=== PATIENT | female | born 1960 | race Caucasian/White ===

== ENCOUNTER 2019-11-09 13:32 | Emergency (ER) | payer MEDICAID ==
[2019-11-09] MEDS ORDERED: Iopamidol 755 MG/ML 200 ML Multipack Bottle IVPUSH ONE (14:52)
--- NOTE | 2019-11-09 15:41 | CT ---
CT abdomen and pelvis Technique: Multiple axial sections were obtained from above the dome of the diaphragm inferiorly through the pubic symphysis. Intravenous contrast was utilized. No oral contrast has been given. Findings: Visualized lung bases show scarring or atelectasis within the right base. Small cyst is noted within the dome of the left lobe of the liver measuring 1.0 cm. No additional abnormality is appreciated within the liver. Gallbladder contains no calcified gallstones. Spleen shows no discrete abnormality. Adrenal glands show no nodule. Pancreas is within normal limits. Kidneys show symmetric contrast enhancement. Aorta shows atherosclerotic change without aneurysm. No retroperitoneal adenopathy is seen. Inflammatory change is noted around a portion of the colon near the junction of the sigmoid and descending colon. Adjacent bowel wall thickening is seen. Numerous diverticuli are seen in this area. Findings are compatible with diverticulitis. No additional pelvic abnormality is appreciated. Uterus shows questionable small fibroid change. Bone window settings were reviewed which show no acute osseous finding. Mild degenerative apophyseal change is seen within the lower lumbar spine. Impression: 1. Findings compatible with diverticulitis near the descending and sigmoid regions. 2. Other findings believed to be incidental as noted above. Diagnostic code #3 This report was dictated in Mountain Standard Time
[2019-11-09] MEDS ORDERED: Amoxicillin/Clavulanate K 875-125 MG Tab PO ONE (16:14)
--- NOTE | 2019-11-09 16:17 | EDM.PDOC ---
ED [facility] GENERAL MEDICAL PROBLEM - General Chief Complaint: Abdominal Pain Stated Complaint: ADMIT FOR CLINIC Time Seen by Provider: 11/09/19 13:55 - History of Present Illness INITIAL COMMENTS - FREE TEXT/NARRATIVE: HPI 59-year-old morbidly obese female presents for evaluation approximately 5 days of left carotid pain, continues to take PO well pass urine, flatus, stool baseline, no dysuria, urinary frequency, flank pain. No identifiable provoking or relieving factors. [] M/S/F/SocHx notable for: [please see HPI]; remainder reviewed with patient and in chart. ROS: Negative constitutional, eye, cardiovascular, pulmonary, GI, , MSK, skin , neurologic, psychiatric, endocrine unless noted in the HPI. Exam HR 100, RR 18, 135/50, T 36.7C, SaO2 95% on room air. Gen: [Pleasant, non-toxic appearing, resting comfortably.] HEENT: [NC, AT, PEERL, EOMI.] Resp: [Clear to auscultation bilaterally, normal work of breathing, no accessory muscle usage.] Card: [Regular rate and rhythm with no murmurs, rubs, or gallops, extremities warm and well perfused.] GI: [mild left lower quadrant tenderness palpation, remainder of abdomen nontender to palpation to palpation throughout all quadrants, no focal tenderness at McBurney's point, negative Ludwig's sign, non-distended, no rebound or guarding.] : [No suprapubic tenderness to palpation.] MSK: [No visible deformities, strength and tone without visually appreciable deficit.] Skin: [Normal color with no visible lesions.] Neuro: [alert and oriented 3, no facial asymmetry, vision and hearing WNL.] Psych: [Mood and affect appropriate.] Labs / Imaging: [WBC 14.4, HB 14.2, sodium 141, potassium 4.2, glucose 115, AST 8, ALT 26, total bilirubin 0.2, ALP 102, UA with negative leukocyte esterase, negative nitrates. CT Abd/Pelvis: Findings compatible with diverticulitis near the descending and sigmoid regions.] MDM Previous chart, nursing note, labs, imaging, and vitals reviewed. A: [59-year-old morbidly obese female presents for evaluation approximately 5 days of left carotid pain, continues to take PO well pass urine, flatus, stool baseline, no dysuria, urinary frequency, flank pain.] DDx: diverticulitis (with or without convocations), UTI, ureterolithiasis, pyelonephritis, lobar nephronia, mesenteric adenitis, ovarian torsion. Evaluation: imaging C/W acute uncomplicated diverticulitis, patient well compensated. UA without evidence of infection. No evidence of ureterolithiasis or further genitourinary abnormalities. Impression: diverticulitis. Left lower quardrant Pain Score (Numeric/FACES): 7 - Related Data Allergies Allergy/AdvReac Type Severity Reaction Status Date / Time No Known Allergies Allergy Verified 11/09/19 13:53 Home Meds: Home Meds Acetaminophen/HYDROcodone [Montrose 325-5 MG] 1 - 2 tab PO Q6H PRN #10 tablet 11/08 [Rx] Amoxicillin/Clavulanate K [Augmentin 875-125 MG] 1 tab PO BID #19 tablet [Rx] Past Medical History HEENT History: Reports: None Cardiovascular History: Reports: Heart Failure, Hypertension Respiratory History: Reports: Other (See Below) Other Respiratory History: CPAP at home Gastrointestinal History: Reports: GERD, Irritable Bowel Syndrome Genitourinary History: Reports: None 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: Musculoskeletal History: Reports: None Neurological History: Reports: Neuropathy, Diabetic Psychiatric History: Reports: None Endocrine/Metabolic History: Reports: Diabetes, Type II Hematologic History: Reports: None Immunologic History: Reports: None Oncologic (Cancer) History: Reports: None Dermatologic History: Reports: None - Infectious Disease History Infectious Disease History: Reports: TB - Past Surgical History Head Surgeries/Procedures: Reports: None HEENT Surgical History: Reports: None Cardiovascular Surgical History: Reports: None Respiratory Surgical History: Reports: None GI Surgical History: Reports: None Female Surgical History: Reports: None Endocrine Surgical History: Reports: None Neurological Surgical History: Reports: None Musculoskeletal Surgical History: Reports: None Oncologic Surgical History: Reports: None Dermatological Surgical History: Reports: None Social & Family History - Family History Family Medical History: Noncontributory - Tobacco Use Smoking Status *Q: Current Every Day Smoker Years of Tobacco use: 30 Packs/Tins Daily: 0.1 - Caffeine Use Caffeine Use: Reports: None - Recreational Drug Use Recreational Drug Use: No ED ROS GENERAL - Review of Systems Review Of Systems: See Below ED EXAM, GENERAL - Physical Exam Exam: See Below Course - Vital Signs Last Recorded V/S: Last Vital Signs Temp 36.7 C 11/09/19 13:51 Pulse 100 11/09/19 13:51 Resp 18 11/09/19 13:51 BP 135/50 L 11/09/19 13:51 Pulse Ox 95 11/09/19 13:51 - Orders/Labs/Meds Orders: Active Orders 24 hr Category Date Time Status Amoxicillin/Clavulanate K [Augmentin 875 MG/125 MG] Med 11/09/19 16:14 Once 1 tab PO ONETIME ONE Meds: Medications Discontinued Medications Generic Name Dose Route Start Last Admin Trade Name Freq PRN Reason Stop Dose Admin Iopamidol 100 ml 11/09/19 14:52 11/09/19 15:15 Isovue Multipack-370 (76%) IVPUSH 11/09/19 14:53 100 ml ONETIME ONE Administration Departure - Departure Time of Disposition: 16:15 Disposition: Home, Self-Care 01 Clinical Impression: Diverticulitis - Discharge Information Prescriptions: Acetaminophen/HYDROcodone [Montrose 325-5 MG] 1 - 2 tab PO Q6H PRN #10 tablet PRN Reason: Pain Amoxicillin/Clavulanate K [Augmentin 875-125 MG] 1 tab PO BID #19 tablet Referrals: Dolores Maldonado PA [Primary Care Provider] - Additional Instructions: You were in seen in the [facility] Emergency Department for evaluation of abdominal pain, your found have diverticulitis. You have been prescribed Augmentin they should take twice daily for the next 10 days. Please read and follow all of the instructions below. Please follow up with your primary care physician in 48 hours repeat evaluation. When calling for follow-up care, please make the office aware that this follow-up is from your recent emergency room visit. If for any reason you are refused follow-up, please contact the [facility] Emergency Department at and asked to speak to the emergency department charge nurse. [] Your care today was limited to identifying and treating emergent medical problems only. Many people have subtle differences in their test results that require follow up with their outpatient physician(s) to correctly determine if this represents a normal variation or concerning abnormality with respect to your specific health. The care given to you today was limited to identifying and treating emergent medical problems - you need to request a copy of all of your medical records from today's visit and follow up with your outpatient physician(s) to review both today's visit and your overall health. If you have any new symptoms or if you are at all concerned about your health please return immediately to the emergency department. You have been diagnosed with diverticulitis. Diverticulitis is when small pouches form in the colon wall. The pouches are called diverticuli. This is a blind pouch. It sticks out of the side of the colon, much like the appendix. They can show up anywhere in the large bowel ( colon). However, they are most common in the left side. These outpouchings ( diverticuli) often cause no symptoms. Diverticulitis is a bacterial infection of the pouch. It is most common in people over 50 years old. Symptoms include abdominal (belly) pain, usually on the left lower side. Other symptoms are fever (temperature higher than 100.4F / 38C) and sometimes diarrhea. There may also be changes in your stool habits. Diverticulitis is treated with antibiotics and bowel rest. You have been prescribed Augmentin (875/125 mg three times daily for 10 days ), please take this as prescribed. Warning regarding both these medications are below. We recommend you limit activity and keep a liquid diet for the next two days. Symptoms should start to get better over the next 2-3 days. Come back right away for re-evaluation if you feel sicker at any time. Diverticulitis is a serious disease. Follow up with your primary doctor or general surgeon in the next 2-3 days. It is important to do so even if the symptoms get better. You may need another test after you have improved. This is to make sure there is no other reason for the symptoms. YOU SHOULD SEEK MEDICAL ATTENTION IMMEDIATELY, EITHER HERE OR AT THE NEAREST EMERGENCY DEPARTMENT, IF ANY OF THE FOLLOWING OCCURS: More abdominal (belly) pain. Continued or rising fever (temperature higher than 100.4F / 38C). Nausea (feeling sick to your stomach) or vomiting (throwing up) General weakness or lightheadedness. Bloody stools (bowel movements). Amoxicillin/Clavulanic Acid (Brand Name: Augmentin) Please take this medication as prescribed. Please take the medication for the full duration of the precription. If you feel you are experiencing a side effect, please call your physician or the emergency department. This is a penicillin type medicine used to treat a wide variety of bacterial infections. Amoxicillin/Clavulanic Acid Side Effects: Diarrhea, nausea, or vomiting may occur. If any of these effects persist or worsen, tell the doctor or pharmacist promptly. Taking this medication with food will help to reduce stomach upset. Tell the doctor right away if any of these rare but serious side effects occur: dark urine, persistent nausea/vomiting, severe stomach/abdominal pain, yellowing eyes/skin, easy bruising/bleeding, new signs of infection (such as fever, persistent sore throat), unusual tiredness. This medication may rarely cause a severe intestinal condition (Clostridium difficile-associated diarrhea) due to a type of resistant bacteria. This condition may occur during treatment or weeks to months after treatment has stopped. Do not use anti-diarrhea products or narcotic pain medications if you have any of the following symptoms because these products may make them worse. Tell the doctor right away if you develop: persistent diarrhea, abdominal or stomach pain/cramping, blood/mucus in your stool. Use of this medication for prolonged or repeated periods may result in oral thrush or a new yeast infection. Contact the doctor if you notice white patches in your mouth, a change in vaginal discharge or other new symptoms. A very serious allergic reaction to this drug is rare. However, get medical help right away if you notice any symptoms of a serious allergic reaction, including: rash, itching/swelling (especially of the face/tongue/throat), severe dizziness, trouble breathing. Amoxicillin can commonly cause a mild rash that is usually not serious. However, you may not be able to tell it apart from a rare rash that could be a sign of a severe allergic reaction. Therefore, get medical help right away if you develop any rash. Amoxicillin/Clavulanic Acid Precautions: Before taking this product, tell your doctor or pharmacist if you are allergic to amoxicillin or clavulanic acid; or to penicillin or cephalosporin antibiotics; or if you have any other allergies. This product may contain inactive ingredients, which can cause allergic reactions or other problems. Talk to your pharmacist for more details. Before using this medication, tell the doctor or pharmacist your medical history, especially of: liver disease (including liver problems caused by previous use of amoxicillin/clavulanic acid), kidney disease, a certain type of viral infection (infectious mononucleosis). This medication may contain aspartame. If you have phenylketonuria (PKU) or any other condition that requires you to limit/avoid aspartame (or phenylalanine ) in your diet, ask your doctor or pharmacist about using this medication safely. Before having surgery, tell your doctor or dentist about all the products you use (including prescription drugs, nonprescription drugs, and herbal products). This product may cause live bacterial vaccines (such as typhoid vaccine) not to work as well. Therefore, do not have any immunizations/vaccinations while using this medication without the consent of your doctor. During , this medication should be used only when clearly needed. Discuss the risks and benefits with your doctor. This medication passes into breast milk. Consult your doctor before breast- feeding. Amoxicillin/Clavulanic Acid Drug Interactions: Drug interactions may change how your medications work or increase your risk for serious side effects. This document does not contain all possible drug interactions. Keep a list of all the products you use (including prescription/ nonprescription drugs and herbal products) and share it with your doctor and pharmacist. Do not start, stop, or change the dosage of any medicines without your doctor's approval. Products that may interact with this drug include: methotrexate. Although most antibiotics are unlikely to affect hormonal control such as pills, patch, or ring, a few antibiotics (such as rifampin, rifabutin) can decrease their effectiveness. This could result in . If you use hormonal control, ask your doctor or pharmacist for more details. This medication may interfere with certain laboratory tests (including certain urine glucose tests), possibly causing false test results. Make sure laboratory personnel and all your doctors know you use this drug. Hydrocodone/Acetaminophen (Brand Names: Montrose, Vicodin) Take as directed on the prescription for relief of pain. This product contains acetaminophen (Tylenol) do not use it with other Acetaminophen containing medications. This drug may cause mild nausea, if so you may take it with a small snack. This drug will cause constipation, if you experience a decrease in bowel movements purchase "Senna-S" (sennasides and docusate) which is available over the counter at pharmacies and take as directed on the bottle. Call your physician if you have not had bowel movemen in two days. This drug may cause fatigue - do not drive or engage in other hazardous activities when using this medication. Do no drink alcohol when using this medication. Store this drug safely, it is a high risk medication if misused. SIDE EFFECTS: Tell your doctor immediately if any of these unlikely but serious side effects occur: mental/mood changes, severe stomach/abdominal pain, difficulty urinating. Seek immediate medical attention if any of these rare but serious side effects occur: fainting, seizure, slow/shallow breathing, unusual drowsiness/difficulty waking up. Taking more than the recommended dose of acetaminophen may cause serious (possibly fatal) liver disease. Seek immediate medical attention if you have any symptoms of liver damage, including: dark urine, persistent nausea/vomiting, stomach/abdominal pain, yellowing eyes/skin. A very serious allergic reaction to this drug is rare. However, seek immediate medical attention if you notice any symptoms of a serious allergic reaction, including: rash, itching/swelling (especially of the face/tongue/throat), severe dizziness, trouble breathing. This is not a complete list of possible side effects. PRECAUTIONS: Before taking this medication, tell your doctor or pharmacist if you are allergic to it; or to other narcotics (such as morphine, codeine); or if you have any other allergies. This product may contain inactive ingredients, which can cause allergic reactions or other problems. Talk to your pharmacist for more details. Before using this medication, tell your doctor or pharmacist your medical history, especially of: brain disorders (such as head injury, tumor , seizures), breathing problems (such as asthma, sleep apnea, chronic obstructive pulmonary disease-COPD), kidney disease, liver disease, mental/mood disorders (such as confusion, depression), personal or family history of regular use/abuse of drugs/alcohol, stomach/intestinal problems (such as blockage, constipation, diarrhea due to infection, paralytic ileus), difficulty urinating (such as due to enlarged prostate). This drug may make you dizzy or drowsy. Avoid alcoholic beverages. Acetaminophen may cause liver damage. Daily use of alcohol, especially when combined with acetaminophen, may increase your risk for liver damage. Caution is advised if you have diabetes, alcohol dependence, liver disease, phenylketonuria (PKU), or any other condition that requires you to limit/avoid these substances in your diet. Ask your doctor or pharmacist about using this product safely. Older adults may be more sensitive to the effects of this drug, especially dizziness, drowsiness, urinary problems. During , this medication should be used only when clearly needed. Using it for long periods or in high doses near the expected delivery date is not recommended because of the potential for harm to the unborn baby. Discuss the risks and benefits with your doctor. Babies born to mothers who have used this medication for an extended time may have withdrawal symptoms such as irritability, abnormal/persistent crying, vomiting, or diarrhea. If you notice any of these symptoms in your , tell the doctor promptly. This medication passes into breast milk and may rarely have undesirable effects on a nursing . Tell the doctor immediately if your baby develops unusual sleepiness, difficulty feeding, or trouble breathing. Consult your doctor before breast-feeding. Prescriptions: If you are uninsured or have financial difficulties with filling your prescription(s), you may consider using a free pharmacy discount service such as [employer] ([employer]) or [employer] ([employer]). These services allow you to search for a medication on your phone (or computer) and obtain a coupon that usually has a significant discount from the list red at a pharmacy. Your physician as well as [facility] does not have a financial relationship with either of these services. You may also wish to speak with your physician to determine if lower cost prescriptions are possible. Obtaining primary care: 1. [facility] provides pediatrics (children), family medicine (children, adults, and some obstetrical care), and internal medicine (adults). Further specialty care is also available. Same day appointments are available. They may be contacted at [phone] and are open Saturday through Saturday 8 AM to [address] [facility] are located at [facility], [address] [place] [address]. 2. [facility] offers family medicine, internal medicine, womens health, and further specialty care. [facility] may be contacted at [phone]. [facility] is located at [address] [place], [address]. 3. If you have health insurance, please also contact your insurer for a list of accepting providers under your policy, you may contact these providers for further health care. Occupational health: Work related injuries may consider following up with [facility], . Occupational health services are located at [address] [place] [address] and are open Saturday through Saturday from 7: 30 am to 5:00 pm. Obstetrical and Gynecological Care: [facility], , Saturday through Saturday 8 AM to 5 PM. [address], [place] [address]. Eyecare: If you have an eye injury you should follow up with your fixed income portfolio manager or with [facility], at [phone] or [phone] , they are located at [address] [place] [address]. Dental Care Yony Wong DDS. [address] [place], [place]. Ph. [phone] Kory Wong DDS MS. [address] [facility] [address], [place], [place]. Ph. Paras Gayle DDS. [address] [place] [address]. Ph. [phone] Ayad Norris DDS. [address] [facility] 4 [place], [place]. Ph. [phone] Darrell Bedoya DDS PC. [address] [facility] [address] [place], [place]. Ph. Obi Allen DDS. [address] [facility]. Ph. [phone] [facility]. [address] [place], [place]. Ph. [phone] [facility]. [address] [address], [place], [place]. Ph. [phone] [facility] [address] [place] [address]. Ph. [phone] [facility]. [address] [place] [address] [address] [place], [place]. Ph. [facility]. [address] [place], [place]. Ph. [phone] Sepsis Event Note - Evaluation Sepsis Screening Result: No Definite Risk - Focused Exam Vital Signs: Vital Signs Temp Pulse Resp BP Pulse Ox 11/09/19 13:51 36.7 C 100 18 135/50 L 95 Date Exam was Performed: 11/09/19 Time Exam was Performed: 16:15 - My Orders Last 24 Hours: My Active Orders 11/09/19 16:14 Amoxicillin/Clavulanate K [Augmentin 875 MG/125 MG] 1 tab PO ONETIME ONE - Assessment/Plan Last 24 Hours: My Active Orders 11/09/19 16:14 Amoxicillin/Clavulanate K [Augmentin 875 MG/125 MG] 1 tab PO ONETIME ONE
== END 2019-11-09 16:57 | disposition home or self-care (01) ==
LOC: MW.ED 13:32
DX: K57.32 Diverticulitis of large intestine without perforation or abscess without bleeding (principal); E66.01 Morbid (severe) obesity due to excess calories; E11.40 Type 2 diabetes mellitus with diabetic neuropathy, unspecified; F17.210 Nicotine dependence, cigarettes, uncomplicated; Z68.42 Body mass index [BMI] 45.0-49.9, adult
CPT/HCPCS: 74177; 99284; A9270; Q9967